=== PATIENT | female | born 1990 | race American Indian/Alaskan Native ===

== ENCOUNTER 2017-10-13 09:59 | Emergency (ER) | payer MEDICAID ==
[2017-10-13] MEDS ORDERED: NORCO 5/325 PO ONE (12:35)
--- NOTE | 2017-10-13 12:37 | Emergency Department Report ---
Chief Complaint: Abdominal Pain Stated Complaint: ABD PAIN Time Seen by Provider: 10/13/17 12:32 - HPI History of Present Illness: 27-year-old AA female presents to the emergency department with complaint of epigastric and right upper quadrant abdominal pain since this morning. She has some nausea with one episode of vomiting. She says that the symptoms worsen when she lays down flat. She has not taken anything for her symptoms prior presentation. She denies any past medical history. She has 1 previous C- section. Recent travel or sick contacts at home. - ROS Review of Systems: Positive for abdominal pain, nausea, vomiting Negative for vaginal bleeding or discharge, dysuria, fever, shortness of breath or chest pain - Exam Vital Signs: Vital Signs 10/13/17 10:25 Temperature 98.5 F Pulse Rate 63 Respiratory 20 Rate Blood Pressure 158/77 O2 Sat by Pulse 100 Oximetry Physical Exam: She does have reproducible right upper quadrant tenderness to palpation. Heart and lungs sounds are normal in auscultation. MSE screening note: Focused history and physical exam performed. Due to findings the following was ordered: She will have a CBC, CMP, lipase, urinalysis, test and a upper quadrant abdominal ultrasound. ED Disposition for MSE Condition: Stable Instructions: Abdominal Pain (ED) Referrals: PRIMARY CARE, [Primary Care Provider] - 3-5 Days
[2017-10-13 12:41] LABS: Basophils % (Auto) 0.3 % (0.0-1.8); Eosinophils # (Auto) 0.1 K/mm3 (0.0-0.4); Eosinophils % (Auto) 0.8 % (0.0-4.3); Hematocrit 32.5 % (30.3-42.9); Hemoglobin 10.3 gm/dl (10.1-14.3); Lymphocytes # (Auto) 1.2 K/mm3 (1.2-5.4); Lymphocytes % (Auto) 18.9 % (13.4-35.0); Mean Corpuscular HGB Conc 32 % (30-34); Monocytes # (Auto) 0.4 K/mm3 (0.0-0.8); Monocytes % (Auto) 6.3 % (0.0-7.3); Platelet Count 263 K/mm3 (140-440); Red Blood Count 4.83 M/mm3 (3.65-5.03); Red Cell Distribution Width 19.9 % (13.2-15.2)
[2017-10-13 12:49] LABS: Bilirubin,Urine NEG (Negative); Blood,Urine NEG (Negative); Color,Urine Yellow (Yellow); Mucus,Urine FEW /HPF; Protein,Urine <15 mg/dL mg/dL (Negative); Urobilinogen,Urine < 2.0 mg/dL (<2.0)
[2017-10-13 12:50] LABS: Alanine Aminotransferase 12 units/L (7-56); Albumin 3.6 g/dL (3.9-5); BUN/Creatinine Ratio 28; Blood Urea Nitrogen 14 mg/dL (7-17); Calcium 8.6 mg/dL (8.4-10.2); Hemolysis Index 14; Lipase 27 units/L (13-60)
[2017-10-13 12:51] LABS: Mean Corpuscular Hemoglobin 21 pg (28-32); Mean Corpuscular Volume 67 fl (79-97)
--- NOTE | 2017-10-13 14:32 | Ultrasound Report ---
FINAL REPORT EXAM: US ABDOMEN COMPLETE HISTORY: ruq pain COMPARISON: None. TECHNIQUE: Multiple transverse and longitudinal sonographic grayscale images of the abdomen were obtained, supplemented with Doppler imaging. FINDINGS: Pancreas:Not well visualized due to overlying bowel gas. Liver appearance: Normal echogenicity. No focal internal lesion.No biliary ductal dilatation. CBD: 2.7mm. Gallbladder: Several mobile gallstones. No pericholecystic fluid or gallbladder wall thickening. Right kidney length: 12.4 cm. Right kidney appearance: Normal cortical thickness. No hydronephrosis. No echogenic focus or mass. IMPRESSION: Cholelithiasis without evidence for cholecystitis.
[2017-10-13 14:52] LABS: HCG Qualitative,Urine Negative (Negative)
--- NOTE | 2017-10-13 15:09 | Emergency Department Report ---
HPI - General Chief Complaint: Abdominal Pain Time Seen by Provider: 10/13/17 12:32 - HPI HPI: 27-year-old AA female presents to the emergency department with complaint of epigastric and right upper quadrant abdominal pain since this morning. She has some nausea with one episode of vomiting. She says that the symptoms worsen when she lays down flat. She has not taken anything for her symptoms prior presentation. She denies any past medical history. She has 1 previous C- section. Recent travel or sick contacts at home. ED Past Medical Hx - Past Medical History Previous Medical History?: No - Surgical History Past Surgical History?: Yes Additional Surgical History: c SEction - Social History Smoking Status: Never Smoker Substance Use Type: None - Medications Home Medications: Home Medications Medication Instructions Recorded Confirmed Last Taken Type HYDROcodone/APAP 5-325 [Grandy 1 each PO Q8H PRN #10 tablet 10/13/17 Unknown Rx 5/325] ED Review of Systems ROS: Stated complaint: ABD PAIN Other details as noted in HPI Comment: All other systems reviewed and negative Constitutional: denies: chills, fever Eyes: denies: eye pain, eye discharge, vision change ENT: denies: ear pain, throat pain Respiratory: denies: cough, shortness of breath, wheezing Cardiovascular: denies: chest pain, palpitations Gastrointestinal: abdominal pain, nausea, vomiting Genitourinary: denies: urgency, dysuria, discharge Musculoskeletal: denies: back pain, joint swelling, arthralgia Skin: denies: rash, lesions Neurological: denies: headache, weakness, paresthesias Physical Exam - Physical Exam Vital Signs: Vital Signs 10/13/17 10/13/17 10:25 13:04 Temperature 98.5 F Pulse Rate 63 Respiratory 20 18 Rate Blood Pressure 158/77 O2 Sat by Pulse 100 99 Oximetry Physical Exam: GENERAL: The patient is well-developed well-nourished. HENT: Normocephalic. Atraumatic. Patient has moist mucous membranes. EYES: Extraocular motions are intact. Pupils equal reactive to light bilaterally. NECK: Supple. Trachea is midline. CHEST/LUNGS: Clear to auscultation. There is no respiratory distress noted. HEART/CARDIOVASCULAR: Regular. There is no tachycardia. There is no murmur. ABDOMEN: Abdomen is soft. There is right upper quadrant tenderness to palpation. No guarding. Patient has normal bowel sounds. Obese habitus. SKIN: Skin is warm and dry. NEURO: The patient is awake, alert, and oriented. The patient is cooperative. The patient has no focal neurologic deficits. The patient has normal speech and gait. MUSCULOSKELETAL: There is no tenderness or deformity. There is no limitation range of motion. There is no evidence of acute injury. ED Course Vital Signs 10/13/17 10/13/17 10:25 13:04 Temperature 98.5 F Pulse Rate 63 Respiratory 20 18 Rate Blood Pressure 158/77 O2 Sat by Pulse 100 99 Oximetry ED Medical Decision Making - Lab Data Result diagrams: 10/13/17 12:10 10/13/17 12:10 - Radiology Data Radiology results: report reviewed Abdominal ultrasound shows cholelithiasis without evidence for cholecystitis. - Medical Decision Making Patient presents with some upper abdominal pain, nausea and one episode of vomiting. On examination she does not appear to have a toxic or rigid abdomen but there is some reproducible upper abdominal tenderness to palpation. Labs are unremarkable. Her ultrasound was done that shows cholelithiasis without cholecystitis. I had a long discussion with her regarding the diagnosis and results. She will be given a referral for both general surgery and gastroenterology in case she needs to establish care for outpatient elective cholecystectomy. Otherwise she will return to the emergency Department with any worsening or symptoms, development of fever, or with any acute distress. She understands and agrees to the plan. - Differential Diagnosis , cholecystitis, cholelithiasis, pancreatitis, gastroenteritis Critical Care Time: No Critical care attestation.: If time is entered above; I have spent that time in minutes in the direct care of this critically ill patient, excluding procedure time. ED Disposition Clinical Impression: Cholelithiasis Qualifiers: Cholelithiasis location: gallbladder Cholecystitis presence: without cholecystitis Biliary obstruction: without biliary obstruction Qualified Code(s) : K80.20 - Calculus of gallbladder without cholecystitis without obstruction Disposition: -01 TO HOME OR SELFCARE Is pt being admited?: No Condition: Stable Instructions: Biliary Colic (ED) Additional Instructions: Please follow-up with your primary care physician. I have given you a referral for a local sweatband shaper, Dr. Gaytan and a local general surgeon, Dr. Hamm, to follow up regarding her gallstones. Return to the emergency Department with any worsening of her symptoms, development of fever, intractable vomiting, or with any acute distress. You have been prescribed a medication that is sedating and therefore should not be taken prior to driving, working, and responsible for children and in no way should be mixed with alcohol of any quantity. Please try and stay away from food that is greasy, fried, spicy and from alcohol consumption as these foods may worsen your gallstone pain. Prescriptions: HYDROcodone/APAP 5-325 [Grandy 5/325] 1 each PO Q8H PRN #10 tablet PRN Reason: Pain Referrals: PRIMARY CARE, [Primary Care Provider] - 3-5 Days GIANA GAYTAN MD [Staff Physician] - 3-5 Days RICHMOND HAMM MD [Staff Physician] - 3-5 Days Time of Disposition: 15:09
[2017-10-13 15:43] VITALS: BP 142/70
== END 2017-10-13 15:42 | disposition home or self-care (01) ==
LOC: ED 09:59
DX: K80.20 Calculus of gallbladder without cholecystitis without obstruction (principal)
CPT/HCPCS: 36415; 76705; 80053; 81001; 81025; 83690; 85025

== ENCOUNTER 2018-06-19 01:10 | Emergency (ER) | payer OTHER, MEDICAID ==
[2018-06-19 01:58] LABS: Basophils % (Auto) 0.6 % (0.0-1.8); Eosinophils # (Auto) 0.2 K/mm3 (0.0-0.4); Eosinophils % (Auto) 2.6 % (0.0-4.3); Hematocrit 36.8 % (30.3-42.9); Hemoglobin 10.8 gm/dl (10.1-14.3); Lymphocytes # (Auto) 2.2 K/mm3 (1.2-5.4); Lymphocytes % (Auto) 35.1 % (13.4-35.0); Mean Corpuscular HGB Conc 29 % (30-34); Mean Corpuscular Volume 68 fl (79-97); Monocytes # (Auto) 0.5 K/mm3 (0.0-0.8); Monocytes % (Auto) 8.5 % (0.0-7.3); Platelet Count 315 K/mm3 (140-440); Red Blood Count 5.44 M/mm3 (3.65-5.03); Red Cell Distribution Width 21.3 % (13.2-15.2)
[2018-06-19 02:21] LABS: Alanine Aminotransferase 14 units/L (7-56); Albumin 3.7 g/dL (3.9-5); BUN/Creatinine Ratio 20; Blood Urea Nitrogen 12 mg/dL (7-17); Hemolysis Index 10
== END 2018-06-19 02:00 | disposition left against medical advice (07) ==
LOC: ED 01:10
DX: R10.11 Right upper quadrant pain (principal); Z53.21 Procedure and treatment not carried out due to patient leaving prior to being seen by health care provider
CPT/HCPCS: 36415; 80053; 83690; 85025